=== PATIENT | male | born 1975 | race Caucasian/White ===

== ENCOUNTER 2017-12-11 15:57 | Inpatient (IN) | payer BC ==
[2017-12-11 16:17] LABS: ADD MAN DIFF? NO
[2017-12-11] MEDS: SOD CHLORIDE 0.9% 1,000 ML IV ×3 (16:22→20:03)
[2017-12-11 16:28] LABS: WHITE BLOOD COUNT 4.8 10^3/ul (4.8-10.8)
[2017-12-11 16:28] LABS: BASOPHILS % 0.8 % (0.0-2.0); EOSINOPHILS # 0.1 10^3/ul (0.0-0.5); EOSINOPHILS % 2.3 % (0.0-7.0); HEMATOCRIT 39.2 % (42.0-52.0); HEMOGLOBIN 13.2 g/dl (14.0-18.0); LYMPHOCYTES # 1.7 10^3/ul (0.8-2.9); LYMPHOCYTES % 34.9 % (15.0-51.0); MEAN CORPUSCULAR HEMOGLOBIN 29.7 pg (29.0-33.0); MEAN CORPUSCULAR HGB CONC 33.7 g/dl (32.0-37.0); MEAN CORPUSCULAR VOLUME 88.3 fl (82.0-101.0); MEAN PLATELET VOLUME 10.6 fl (7.4-10.4); MONOCYTE # 0.5 10^3/ul (0.3-0.9); MONOCYTES % 9.8 % (0.0-11.0); NEUTROPHIL # 2.5 10^3/ul (1.6-7.5); NEUTROPHILS % 51.8 % (39.0-77.0); PLATELET COUNT 188 10^3/UL (140-415); RED BLOOD COUNT 4.44 10^6/ul (4.70-6.10); RED CELL DISTRIBUTION WIDTH 11.9 % (11.5-14.5)
[2017-12-11 16:31] LABS: ADD UMIC NO; UR ASCORBIC ACID NEGATIVE (NEGATIVE); UR BILIRUBIN (Dip) NEGATIVE (NEGATIVE); UR BLOOD (Dip) NEGATIVE (NEGATIVE); UR CLARITY CLEAR (CLEAR); UR COLOR YELLOW (YELLOW); UR GLUCOSE (Dip) NEGATIVE (NEGATIVE); UR KETONES (Dip) NEGATIVE (NEGATIVE); UR LEUKOCYTE ESTERASE (Dip) NEGATIVE Leu/ul (NEGATIVE); UR NITRITE (Dip) NEGATIVE (NEGATIVE); UR SPECIFIC GRAVITY (Dip) 1.025 (1.003-1.030); UR TOTAL PROTEIN (Dip) NEGATIVE (NEGATIVE); UR UROBILINOGEN (Dip) 1+ mg/dL (NEGATIVE)
[2017-12-11 16:45] LABS: AMPHETAMINE/METHAMPHETAMINE Negative (NEGATIVE); BARBITURATES Negative (NEGATIVE); CANNABINOIDS Negative (NEGATIVE); COCAINE Negative (NEGATIVE); OPIATES Negative (NEGATIVE)
[2017-12-11 16:46] LABS: ALANINE AMINOTRANSFERASE 243 IU/L (13-69); ALBUMIN 4.1 g/dl (3.3-4.9); ALBUMIN/GLOBULIN RATIO 1.51; ALKALINE PHOSPHATASE 66 IU/L (42-121); ANION GAP 10 (8-16); ASPARTATE AMINO TRANSFERASE 292 IU/L (15-46); BENZODIAZEPINES Negative (NEGATIVE); BILIRUBIN,INDIRECT 0.3 mg/dl (0-1.1); BILIRUBIN,TOTAL 0.3 mg/dl (0.2-1.3); BLOOD UREA NITROGEN 13 mg/dl (7-20); CALCIUM 9.1 mg/dl (8.4-10.2); CARBON DIOXIDE 30 mmol/L (21-31); CHLORIDE 110 mmol/L (97-110); CREATININE 0.94 mg/dl (0.61-1.24); GLUCOSE 134 mg/dl (70-220); LIPASE 79 U/L (23-300); POTASSIUM 4.5 mmol/L (3.5-5.1); SODIUM 145 mmol/L (135-144); TOTAL PROTEIN 6.8 g/dl (6.1-8.1)
[2017-12-11 17:55] LABS: CREATINE KINASE 20857 IU/L (23-200)
[2017-12-11] MEDS ORDERED: ONDANSETRON 4 MG INJ IV ×2 (18:00→19:30)
[2017-12-11] MEDS ORDERED: ACETAMINOPHEN 325 MG TAB PO ×2 (18:00→19:30)
[2017-12-11] MEDS ORDERED: DOCUSATE SODIUM 100 MG CAP PO (19:30)
[2017-12-11] MEDS ORDERED: NACL 0.9% 3 ML SYG IV (19:30)
[2017-12-11] MEDS ORDERED: HYDROCODONE/APAP (5/325) TAB PO (19:30)
[2017-12-11] MEDS: FAMOTIDINE 20 MG TAB PO (20:54)
[2017-12-12] MEDS: SOD CHLORIDE 0.9% 1,000 ML IV ×6 (02:24→23:22)
[2017-12-12 06:39] LABS: ALANINE AMINOTRANSFERASE 210 IU/L (13-69); ALBUMIN/GLOBULIN RATIO 1.07; ALKALINE PHOSPHATASE 50 IU/L (42-121); ANION GAP 9 (8-16); ASPARTATE AMINO TRANSFERASE 171 IU/L (15-46); BILIRUBIN,INDIRECT 0.4 mg/dl (0-1.1); BILIRUBIN,TOTAL 0.4 mg/dl (0.2-1.3); BLOOD UREA NITROGEN 11 mg/dl (7-20); CALCIUM 8.6 mg/dl (8.4-10.2); CARBON DIOXIDE 26 mmol/L (21-31); CHLORIDE 108 mmol/L (97-110); CREATININE 0.82 mg/dl (0.61-1.24); GLUCOSE 156 mg/dl (70-220); PHOSPHORUS 2.8 mg/dl (2.5-4.9); POTASSIUM 4.1 mmol/L (3.5-5.1); SODIUM 139 mmol/L (135-144); TOTAL PROTEIN 5.8 g/dl (6.1-8.1)
[2017-12-12] MEDS: FAMOTIDINE 20 MG TAB PO ×2 (08:13→20:53)
[2017-12-12 09:27] LABS: CREATINE KINASE 9537 IU/L (23-200)
[2017-12-13] MEDS: SOD CHLORIDE 0.9% 1,000 ML IV ×2 (04:42→08:14)
[2017-12-13 05:59] LABS: ALANINE AMINOTRANSFERASE 181 IU/L (13-69); ALBUMIN 3.7 g/dl (3.3-4.9); ALBUMIN/GLOBULIN RATIO 1.48; ALKALINE PHOSPHATASE 82 IU/L (42-121); ASPARTATE AMINO TRANSFERASE 86 IU/L (15-46); BILIRUBIN,INDIRECT 0.3 mg/dl (0-1.1); BILIRUBIN,TOTAL 0.3 mg/dl (0.2-1.3); BLOOD UREA NITROGEN 10 mg/dl (7-20); CALCIUM 8.8 mg/dl (8.4-10.2); CARBON DIOXIDE 28 mmol/L (21-31); CHLORIDE 107 mmol/L (97-110); GLUCOSE 243 mg/dl (70-220); SODIUM 141 mmol/L (135-144); TOTAL PROTEIN 6.2 g/dl (6.1-8.1)
[2017-12-13 06:03] LABS: MAGNESIUM 1.8 mg/dl (1.7-2.5)
[2017-12-13 06:03] LABS: PHOSPHORUS 3.3 mg/dl (2.5-4.9)
[2017-12-13 06:53] LABS: ANION GAP 10 (8-16); POTASSIUM 4.3 mmol/L (3.5-5.1)
[2017-12-13 07:03] LABS: CREATINE KINASE 4419 IU/L (23-200)
[2017-12-13] MEDS: FAMOTIDINE 20 MG TAB PO (09:00)
== END 2017-12-13 12:00 | disposition home or self-care (01) | DRG 558 ==
LOC: E/R 15:57 → 2NE 17:40
DX: M62.82 Rhabdomyolysis (principal)
CPT/HCPCS: 36415; 80053; 80307; 81003; 82550; 83690; 83735; 84100; 85025; 93005; 99285-25